=== PATIENT | male | born 1985 | race Caucasian/White ===

== ENCOUNTER 2019-11-09 00:47 | Emergency (ER) | payer OTHER ==
[2019-11-09] MEDS ORDERED: ONDANSETRON HCL 4 MG/2 ML VIAL ONE (01:20)
[2019-11-09 01:27] LABS: BASOPHILS % (AUTO) 0.5 % (0.0-5.0); EOSINOPHILS % (AUTO) 0.6 % (0.0-8.0); HEMATOCRIT 44.3 % (42-54); LYMPHOCYTES % (AUTO) 12.4 % (21.0-51.0); MEAN CORPUSCULAR HEMOGLOBIN 31.6 pg (27.0-33.0); MEAN CORPUSCULAR HGB CONC 35.2 g/dL (32.0-36.0); MEAN CORPUSCULAR VOLUME 89.9 fL (79-99); MONOCYTES % (AUTO) 3.9 % (3.0-13.0); NEUTROPHILS % (AUTO) 81.9 % (40.0-77.0); PLATELET COUNT (AUTO) 290 K/uL (130-400); RED BLOOD CELL COUNT(AUTO) 4.93 MIL/uL (4.50-6.20); WHITE BLOOD COUNT (AUTO) 20.7 K/uL (4.8-10.8)
[2019-11-09 01:29] LABS: APPEARANCE,URINE Cloudy (CLEAR); BILIRUBIN,URINE Negative (NEGATIVE); COLOR,URINE Yellow (YELLOW); GLUCOSE, URINE (UA) >=1000 mg/dL (NEGATIVE); KETONES,URINE 40 mg/dL (NEGATIVE); LEUKOCYTE ESTERASE ,URINE Negative (NEGATIVE); NITRATE,URINE Negative (NEGATIVE); OCCULT BLOOD,URINE Negative (NEGATIVE); PH,URINE 8.5 (5.0-8.0); PROTEIN,URINE POS 1+ mg/dL (NEGATIVE)
[2019-11-09 01:41] LABS: AMORPHOUS SEDIMENT,UR Many /LPF (None Seen); BACTERIA,URINE None Seen /HPF (None Seen); MUCUS,URINE Few LPF (None Seen); RBC,URINE None Seen /HPF (0-1); SQUAMOUS EPITHELIAL CELL,UR None Seen /HPF (0-2); WBC,URINE None Seen /HPF (0-1)
[2019-11-09 01:45] LABS: CREATININE 1.2 mg/dL (0.5-1.5); POTASSIUM 3.7 mmol/L (3.5-5.1)
[2019-11-09 01:49] LABS: ALBUMIN 4.5 g/dL (3.5-5.0); BILIRUBIN,TOTAL 0.5 mg/dL (0.2-1.0); TOTAL PROTEIN, SERUM 7.8 g/dL (6.0-8.3)
[2019-11-09] MEDS ORDERED: SODIUM CHLORIDE 0.9% 1000ML 1,000 ML IV ONE (02:10)
[2019-11-09] MEDS ORDERED: IOHEXOL-350 75 ML VIAL IV ONE (03:01)
[2019-11-09 03:29] LABS: INR 0.91 (0.85-1.15); PARTIAL THROMBOPLASTIN TIME 22.2 SEC (26.3-35.5); PROTHROMBIN TIME 9.9 SEC (9.6-11.6)
== END 2019-11-09 10:24 | disposition short-term general hospital (02) ==
LOC: EDH 00:47
DX: I60.9 Nontraumatic subarachnoid hemorrhage, unspecified (principal); I67.1 Cerebral aneurysm, nonruptured; R73.9 Hyperglycemia, unspecified; R03.0 Elevated blood-pressure reading, without diagnosis of hypertension; R11.2 Nausea with vomiting, unspecified; Z72.0 Tobacco use
CPT/HCPCS: 36415; 70450; 70496; 70498; 80053; 81001; 83690; 85025; 85610; 85730; 93005; 96361 ×2; 96374; 96375; 96376; 99291; J2405; J7030; Q9967

== ENCOUNTER 2024-09-07 11:42 | Emergency (ER) | payer SELFPAY ==
[~2024-09-07] VITALS: Ht 177.8 cm; Wt 72.1 kg
[2024-09-07] MEDS: Solu-medROL 125MG VIAL IVP ONE (12:15)
[2024-09-07] MEDS: IpraTROPium/alBUTERol SULFATE 3 ML SOLUTION IH ONE (12:24)
[2024-09-07 12:26] VITALS: PULSE 88; RESP 18
[2024-09-07 12:32] LABS: SARS-CoV-2, RNA, NAAT NEGATIVE SARS CoV-2 (NEGATIVE)
[2024-09-07 12:40] LABS: INFLUENZA TYPE A Negative For Type A (NEGATIVE); INFLUENZA TYPE B Negative For Type B (NEGATIVE)
[2024-09-07 12:41] LABS: BASOPHILS # (AUTO) 0.08 K/uL (0.00-0.20); BASOPHILS % (AUTO) 0.5 % (0.0-5.0); EOSINOPHILS # (AUTO) 0.32 K/uL (0.00-0.70); EOSINOPHILS % (AUTO) 1.9 % (0.0-8.0); HEMATOCRIT 40.3 % (42-54); IMMATURE GRANULOCYTE ABSOLUTE 0.18 K/uL (0-1); LYMPHOCYTES # (AUTO) 2.5 K/uL (1.0-4.8); MEAN CORPUSCULAR HEMOGLOBIN 30.3 pg (27.0-33.0); MEAN CORPUSCULAR HGB CONC 34.5 g/dL (32.0-36.0); MONOCYTES # (AUTO) 1.3 K/uL (0.1-1.0); MONOCYTES % (AUTO) 7.8 % (3.0-13.0); NEUTROPHILS # (AUTO) 12.3 K/uL (1.8-7.7); NEUTROPHILS % (AUTO) 73.7 % (40.0-77.0); PLATELET COUNT (AUTO) 386 K/uL (130-400); RED BLOOD CELL COUNT(AUTO) 4.58 MIL/uL (4.50-6.20); RED CELL DISTRIBUTION WIDTH 12.7 % (11.0-15.5); WHITE BLOOD COUNT (AUTO) 16.7 K/uL (4.8-10.8)
[2024-09-07 12:50] LABS: CREATININE 1.1 mg/dL (0.5-1.3); POTASSIUM 3.5 mmol/L (3.5-5.1)
[2024-09-07] MEDS: AZITHROMYCIN 500MG+NS 250ML 250 ML IVPB SCH (13:29)
[2024-09-07] MEDS: cefTRIAXone 1G VIAL IVPB ONE (13:29)
[2024-09-07] MEDS ORDERED: METH4TAB3 PO (13:32)
[2024-09-07] MEDS ORDERED: AZIT250T9 PO (13:32)
[2024-09-07] MEDS ORDERED: AMOX1TAB16 PO (13:32)
--- NOTE | 2024-09-07 13:35 | ERN ---
General Chief Complaint: Congestion Stated Complaint: CONGESTION Time Seen by MD: 11:43 Time Seen by Midlevel: 11:43 Source: patient History of Present Illness Initial Comments Patient is a 39-year-old male with no significant past medical history presenting to the emergency department for evaluation of cough and congestion with intermittent shortness of breath. He states his symptoms has been ongoing for the last two weeks. Denies any fever or any other symptoms. Allergies: Coded Allergies: No Known Drug Allergies (Unverified Allergy, Unknown, 09/07/24) Past Medical History Past Medical History: No Pertinent History Medical History Other: HX OF ANERYSM Past Surgical History: Other ROS Dictation CONSTITUTIONAL: Negative except for HPI HEAD/FACE: Negative except for HPI EENT: Negative except for HPI RESPIRATORY: Negative except for HPI GASTROINTESTINAL/ABDOMINAL: Negative except for HPI GENITOURINARY: Negative except for HPI MUSCULOSKELETAL: Negative except for HPI INTEGUMENTARY: Negative except for HPI NEUROLOGICAL/PSYCH: Negative except for HPI HEMATOLOGIC/LYMPHATIC: Negative except for HPI All Systems Negative, Except as noted above. 13 point review of systems assessed and all negative except for above. Physical Exam Physical Exam Dictation Vital Signs reviewed General Appearance: Alert, oriented x 3, no acute distress, well developed, nourished. Head and Face: non-traumatic. Eyes: PERRL, pink conjunctivas, eyelid no trauma, anterior chamber with arcus senilis. Ears: Pinnas intact and no signs of trauma or erythema ear canals clear and no discharge TM no erythema Nose: No discharge, no bleeding. Oropharynx: Mouth normal, tongue pink, pharynx clear,no erythema, tonsils no exudates, no abscesses noted, mucous membrane moist Neck: Supple, non-tender, no thyromegaly, no masses, no JVD, no bruits Breast:Deferred Chest:No tenderness, no crepitus, no paradoxical movement, no retractions Lungs: Expiratory wheezing to bilateral lung lloyd, rhonchi to bilateral lung lloyd Heart: Regular rate, regular rhythm, no murmur, no gallops Vascular: no peripheral edema, Abdomen: Soft, positive bowel sounds, nondistended, no guarding, nontender, no rebound, no masses no hepatomegaly, no splenomegaly, no Torre's sign, no hernias. Rectal: Deferred Genital: Deferred Neurological: Normal speech, motor function intact, sensory function intact Musculoskeletal: Neck nontender, full range of motion, back nontender, full range of motion, Extremities: nontender, full range of motion Skin: Color pink, dry, no turgor, no rash, no lacerations, no abrasions, no contusions. Lymphatic: Deferred Results Laboratory and Microbiology Lab and Micro Result Laboratory Tests Test 09/07/24 12:05 09/07/24 12:25 Influenza Type A Antigen Negative For Type A Influenza Type B Antigen Negative For Type B SARS-CoV-2, RNA, NAAT NEGATIVE SARS CoV-2 White Blood Count 16.7 K/uL (4.8-10.8) H Red Blood Count 4.58 MIL/uL (4.50-6.20) Hemoglobin 13.9 g/dL (14.0-18.0) L Hematocrit 40.3 % (42-54) L Mean Corpuscular Volume 88.0 fL (79-99) Mean Corpuscular Hemoglobin 30.3 pg (27.0-33.0) Mean Corpuscular Hemoglobin Concent 34.5 g/dL (32.0-36.0) Red Cell Distribution Width 12.7 % (11.0-15.5) Platelet Count 386 K/uL (130-400) Mean Platelet Volume 9.3 fL (7.5-10.5) Immature Granulocyte % (Auto) 1.1 % (0-1) H Neutrophils (%) (Auto) 73.7 % (40.0-77.0) Lymphocytes (%) (Auto) 15.0 % (21.0-51.0) L Monocytes (%) (Auto) 7.8 % (3.0-13.0) Eosinophils (%) (Auto) 1.9 % (0.0-8.0) Basophils (%) (Auto) 0.5 % (0.0-5.0) Neutrophils # (Auto) 12.3 K/uL (1.8-7.7) H Lymphocytes # (Auto) 2.5 K/uL (1.0-4.8) Monocytes # (Auto) 1.3 K/uL (0.1-1.0) H Eosinophils # (Auto) 0.32 K/uL (0.00-0.70) Basophils # (Auto) 0.08 K/uL (0.00-0.20) Absolute Immature Granulocyte (auto 0.18 K/uL (0-1) Nucleated Red Blood Cells 0.0 % (0.0-0.19) Sodium Level 141 mmol/L (136-145) Potassium Level 3.5 mmol/L (3.5-5.1) Chloride Level 103 mmol/L (101-111) Carbon Dioxide Level 28 mmol/L (21-32) Blood Urea Nitrogen 10 mg/dL (7-18) Creatinine 1.1 mg/dL (0.5-1.3) Glomerular Filtration Rate Calc 88 mL/min (>90) Random Glucose 160 mg/dL (70-105) H Total Calcium 9.0 mg/dL (8.5-10.1) Labs Reviewed?: Yes MDM MDM: 39-year-old male with no significant past medical history presenting to the emergency department with cough and congestion that has been ongoing for two days. Most recently he noticed some dyspnea on exertion so he decided to report to the ER for further evaluation. No fevers reported. Denies sick contacts. On physical examination the patient was in no acute respiratory distress. Lung auscultation reveals expiratory wheezing to bilateral lung lloyd with rhonchi. Patient was administered a DuoNeb treatment and was [id number] mg of Solu-Medrol IV. His CBC shows leukocytosis with a left shift however the remainder of his blood work is unremarkable. Chest x-ray is consistent with pneumonia. The patient was given1 g of ceftriaxone and 500 mg of azithromycin in the emergency department and will be discharged home with outpatient antibiotics. Given that the patient was not in any acute respiratory distress and has no comorbidities we will treat this outpatient. If the patient does not improve over the next week he was advised to either follow up with his primary care doctor or return to the emergency department for further evaluation. Patient agrees with the plan and all questions have been answered. Differential diagnosis: Pneumonia, acute bronchitis, pneumonitis There are no social concerns with this patient. Prescription drug management Prescriptions will include: Augmentin and azithromycin Medical management and examination interpretation discussions were had by me with other qualified healthcare professionals as indicated for the patient's care. ED Course Orders Procedure Category Date Status Time Chest 1vw RAD 09/07/24 Taken 11:48 Ipratropium/Albuterol PHA 09/07/24 Complete Neb (Duoneb) 12:00 Cbc With Differential LAB 09/07/24 Complete 11:48 Basic Metabolic Panel LAB 09/07/24 Complete 11:48 Covid Rna Naat LAB 09/07/24 Complete 11:48 Influenza Type A & B, LAB 09/07/24 Complete Rapid 11:48 Methylprednisolone PHA 09/07/24 Complete Succ 125mg (Solu-Medr 12:00 Ceftriaxone 1g Vial PHA 09/07/24 Complete (Rocephine 1g Inj) 13:00 Azithromycin 500mg+Ns PHA 09/07/24 In Process 250ml (Azithromyci 14:00 Current Medications Medications (Trade) Dose Ordered Sig/Moshe Route PRN Reason Start Time Stop Time Status Last Admin Dose Admin Albuterol (DUOneb) 1 UDVIAL ONCE ONCE IH 09/07/24 12:00 09/07/24 12:01 DC 09/07/24 12:24 Azithromycin 250 ml @ 250 mls/hr Q24H IVPB 09/07/24 14:00 09/17/24 13:59 Ceftriaxone Sodium (ROCEphine 1G INJ) 1 gm ONCE ONCE IVPB 09/07/24 13:00 09/07/24 13:03 DC Methylprednisolone Sodium Succinate (Solu-medROL 125MG) 125 mg ONCE ONCE IVP 09/07/24 12:00 09/07/24 12:01 DC 09/07/24 12:15 Vital Signs Date Time Temp Pulse Resp B/P (MAP) Pulse Ox O2 Delivery O2 Flow Rate FiO2 09/07/24 12:26 88 18 09/07/24 11:43 98.8 97 16 137/94 100 Room Air 0 DX & DISP Disposition: Discharge Departure Impression: Primary Impression: Community acquired pneumonia Additional Impression: Leukocytosis Condition: Stable Scripts Methylprednisolone (Medrol) 4 Mg Tab.ds.pk 1 TAB PO AD for 6 Days, #21 TAB 0 Refills 6 on day 1 then reduce by one tablet daily until gone Prov: CORINA CABRERA 09/07/24 Azithromycin (Azithromycin) 250 Mg Tablet 1 TAB PO AD for 5 Days, #6 TAB 0 Refills 2 the first day followed by 1 for days 2-5 Prov: CORINA CABRERA 09/07/24 Amoxicillin/Potassium Clav (Amox Tr-K Clv 875-125 mg Tab) 875 Mg-125 Mg Tablet 1 EACH PO BID for 10 Days, #20 TAB 0 Refills Prov: CORINA CABRERA 09/07/24 Additional Instructions: Your blood work today shows an elevated white blood cell count. However, the remainder of your blood work is unremarkable. Your chest x-ray shows evidence of pneumonia. You were given1 g of ceftriaxone and 500 mg of azithromycin in the emergency department. These are to antibiotics that should help improve your symptoms over the next couple of days. I have given you a prescription [facility] If your symptoms do not improve over the next week please report to the ER for further evaluation. Referrals: SELF,REFERRAL (PCP) Time of Disposition: 13:31 I have reviewed the case, and I agree with, Diagnosis and Plan I performed the substantive portion of the visit. I have reviewed and personally made and approve the management plan that is documented in the note by myself or the AMY. I acknowledge for responsibility for the patient's management plan. CORINA CABRERA Sep 07, 2024 13:35
--- NOTE | 2024-09-07 13:40 | NUR ---
HAS ORDERS FOR DISCHARGE, AWAITING COMPLETION OF AZITHROMYCIN IN 250 ML NS TO BE COMPLETED
--- NOTE | 2024-09-07 14:55 | HMCIMG ---
PORTABLE CHEST RADIOGRAPH INDICATION: sob/wheezing COMPARISON: 08/11/2016 FINDINGS: Heart size is normal. The pulmonary vascularity and javier appear normal. No abnormal pulmonary parenchymal opacity or consolidation identified. No significant pleural effusion noted. No pneumothorax detected. IMPRESSION: No radiographic evidence for any acute cardiopulmonary process.
[2024-09-07 15:17] VITALS: BP 134/91; PULSE 85; RESP 16; TEMP 98.1; O2SAT 98
== END 2024-09-07 15:22 | disposition home or self-care (01) ==
LOC: EDH 11:42
DX: J18.9 Pneumonia, unspecified organism (principal); D72.829 Elevated white blood cell count, unspecified; Z20.822 Contact with and (suspected) exposure to COVID-19
CPT/HCPCS: 99284; 96365; 71045; 87635; 96366; 96375; 80048; 85025; 87804 ×2; 36415; 96368; 94640; J2919; J0696; J0456